=== PATIENT | female | born 1955 | race Caucasian/White ===

== ENCOUNTER 2017-06-01 08:59 | Outpatient (CLI) | payer OTHER ==
--- NOTE | 2017-06-09 15:12 | MMO ---
BILATERAL DIGITAL SCREENING MAMMOGRAMS WITH CAD COMPARISON: 05/31/2013. FINDINGS: There are scattered fibroglandular densities. A biopsy clip is seen in the right breast. There ar e new tiny grouped calcifications in the upper outer breast on both sides. IMPRESSION: BI-RADS Category 0: Incomplete assessment. Recommend direct MLO and spot magnification views of th e bilateral calcifications. POS: [facility]
== END 2017-06-01 09:00 | disposition home or self-care (01) ==
LOC: MAMMO 08:59
PROVIDERS: ATTEND Internal Medicine
DX: Z12.31 Encounter for screening mammogram for malignant neoplasm of breast (principal)
CPT/HCPCS: 77067; G0202

== ENCOUNTER 2017-06-11 09:47 | Outpatient (CLI) | payer OTHER ==
--- NOTE | 2017-06-11 12:43 | MMO ---
BILATERAL DIAGNOSTIC BREAST MAMMOGRAM: Date: 06/11/17 HISTORY: Abnormal calcification noted on screening mammography, bilaterally. COMPARISON: 05/31/13, 06/01/17. TECHNIQUE: Spot views of the left and right breast are performed on the CC and MLO projection. Additionally, 90 degree views are performed. FINDINGS: Redemonstration of biopsy clip. Calcifications in the upper outer left breast have a benign appearan ce. IMPRESSION: BIRADS 2: Benign Finding(s) RECOMMENDATION: Annual mammogram. POS: [facility]
== END 2017-06-11 09:48 | disposition home or self-care (01) ==
LOC: MAMMO 09:47
PROVIDERS: ATTEND Internal Medicine
DX: R92.1 Mammographic calcification found on diagnostic imaging of breast (principal)
CPT/HCPCS: 77066; G0204

== ENCOUNTER 2017-09-03 09:14 | Outpatient (CLI) | payer OTHER ==
--- NOTE | 2017-09-03 11:52 | MRI ---
MRI OF THE ABDOMEN WITHOUT AND WITH CONTRAST: COMPARISON: Abdominal ultrasound 04/16/17. HISTORY: Excessive weight loss and elevated LFTs. Gallstones. TECHNIQUE: Multiplanar, multisequence MR images were obtained of the abdomen without and with IV contrast. FINDINGS: There is a 6-7 mm filling defect in the gallbladder consistent with a gallstone. No biliary dilatati on is seen. Adjacent to the gallbladder, there is a 3 cm lesion in the right lobe of the liver demonstrating lowe r T1 signal than the adjacent liver parenchyma. After the administration of contrast, this lesion de monstrates gradual enhancement with incomplete fill-in. This could represent a hemangioma. No other liver lesions are seen. The kidneys, adrenal glands, spleen, and pancreas are unremarkable. No abdominal adenopathy is seen. No marrow signal abnormality is present. IMPRESSION: 1. There is a mass-like lesion in the right lobe of the liver. This could represent a hemangioma. However, this would be an atypical hemangioma as it appears to fill more centrally first rather than peripherally. A followup CT or MRI in 3-6 months is recommended to ensure stability. 2. Cholelithiasis. POS: [facility]
== END 2017-09-03 09:15 | disposition home or self-care (01) ==
LOC: MRI 09:14
PROVIDERS: ATTEND Internal Medicine Gastroenterology
DX: K80.20 Calculus of gallbladder without cholecystitis without obstruction (principal); R74.8 Abnormal levels of other serum enzymes; R63.4 Abnormal weight loss
CPT/HCPCS: 74183; 82565

== ENCOUNTER 2018-07-19 13:45 | Outpatient (CLI) | payer OTHER | END 2018-07-19 13:46 | disposition home or self-care (01) | LOC: BICMAMMO 13:45 | PROVIDERS: ATTEND Internal Medicine | DX: Z12.31 Encounter for screening mammogram for malignant neoplasm of breast (principal); Z85.89 Personal history of malignant neoplasm of other organs and systems | CPT/HCPCS: 77063; 77067 ==

== ENCOUNTER 2018-07-25 14:01 | Outpatient (CLI) | payer OTHER | END 2018-07-25 14:02 | disposition home or self-care (01) | LOC: BICMAMMO 14:01 | PROVIDERS: ATTEND Internal Medicine | DX: N63.21 Unspecified lump in the left breast, upper outer quadrant (principal); Z85.89 Personal history of malignant neoplasm of other organs and systems | CPT/HCPCS: G0279 ==

== ENCOUNTER 2018-07-29 10:45 | Outpatient (CLI) | payer OTHER ==
--- NOTE | 2018-07-29 13:03 | ULT ---
LIMITED LEFT BREAST ULTRASOUND: Date: 07/29/18 PROVIDED CLINICAL HISTORY: Abnormal mammogram. FINDINGS: Limited sonographic interrogation was performed of the left breast from the 12-3:00 positions. There are scattered small simple cysts seen. There is no concerning mass to correspond to the area of archi tectural distortion on mammography. This area of mammographic distortion appears similar to the 2017 examination. IMPRESSION: BIRADS Category 3 - Probably benign findings. A 6 month follow-up left diagnostic mammogram is recomm ended. The facility will notify patient of need for additional imaging services. POS: OFF
== END 2018-07-29 10:46 | disposition home or self-care (01) ==
LOC: BICULT 10:45
PROVIDERS: ATTEND Internal Medicine
DX: R92.8 Other abnormal and inconclusive findings on diagnostic imaging of breast (principal)

== ENCOUNTER 2019-01-30 13:41 | Outpatient (CLI) | payer MEDICARE, OTHER ==
--- NOTE | 2019-01-30 14:47 | MMO ---
Left Breast MAMMO Unilat Diag [facility] LT+SHAHEEN. CLINICAL HISTORY: Patient is 64 years old and is seen for follow-up at short-interval from prior study. The patient has no family history of breast cancer. The patient has a history of other cancer in 2018. VIEWS: The views performed were: left craniocaudal with tomosynthesis; left mediolateral oblique with tomosynthesis; and left mediolateral. FILMS COMPARED: The present examination has been compared to prior imaging studies performed at [facility] on 07/19/2018, 07/25/2018 and 01/30/2019. MAMMOGRAM FINDINGS: The breast is heterogeneously dense, which could obscure a lesion on mammography. There is an area of architectural distortion seen in the outer region of the left breast. IMPRESSION: AREA OF ARCHITECTURAL DISTORTION IN THE LEFT BREAST IS PROBABLY BENIGN. FOLLOW-UP IN 6 MONTHS IS RECOMMENDED. THE RESULTS OF THIS EXAM WERE SENT TO THE PATIENT. ACR BI-RADS Category 3 - Probably benign finding - short interval follow-up suggested. [facility] will notify the patient of the need for additional imaging services. MAMMOGRAPHY NOTE: 1. A negative mammogram report should not delay a biopsy if a dominant of clinically suspicious mass is present. 2. Approximately 10% to 15% of breast cancers are not detected by mammography. 3. Adenosis and dense breasts may obscure an underlying neoplasm.
--- NOTE | 2019-01-30 14:59 | ULT ---
LEFT BREAST ULTRASOUND: 01/30/19 HISTORY: 64-year-old female with architectural distortion in the outer aspect of the left breast on mammograph y. Patient has a history of a horse bite to the left breast multiple years in the past that caused he r breast to be black and blue as well as larger than the opposite breast. COMPARISON: 07/29/18 and mammogram 01/30/19. TECHNIQUE: Multiplanar chau scale and color Doppler images were obtained in a left breast ultrasound. FINDINGS: In the outer aspect of the left breast, normal appearing breast parenchyma is seen. No suspicious mas s or shadowing is seen. A normal appearing lymph node is seen in the left axilla. IMPRESSION: BIRADS 3: Probably Benign Finding Initial Short-Interval Follow-Up Suggested Initial short-term follow up (usually 6-month) mammogram and ultrasound left breast is recommended. If an MRI happens to be performed in the interval, the follow-up may be unnecessary if the MRI does n ot show any findings. The architectural distortion in the left breast appears to be slightly increasing but no definite mas s is seen. This could be secondary to the patient's recent weight loss from her known cholangiocarcin jonny and/or the history of bite/trauma to the left breast. However, given the appearance of slight inc reasing architectural distortion, an MRI of the left breast may be helpful to exclude an underlying m alignant process. POS: [facility]
== END 2019-01-30 13:42 | disposition home or self-care (01) ==
LOC: BICMAMMO 13:41
PROVIDERS: ATTEND Internal Medicine
DX: R92.8 Other abnormal and inconclusive findings on diagnostic imaging of breast (principal); Z85.89 Personal history of malignant neoplasm of other organs and systems; N64.89 Other specified disorders of breast
CPT/HCPCS: 76642; 77065; G0279

== ENCOUNTER 2019-02-10 10:19 | Outpatient (CLI) | payer MEDICARE, OTHER ==
--- NOTE | 2019-02-10 12:18 | MRI ---
MRI OF THE BILATERAL BREASTS WITHOUT AND WITH CONTRAST: HISTORY: Architectural distortion in the outer aspect of the left breast on mammography. COMPARISON: 01/30/2019, 07/25/2018, 07/19/2018. TECHNIQUE: Multiplanar, multisequence MR images were obtained in the bilateral breasts without and with IV contr ast. FINDINGS: Heterogeneously dense breast parenchyma is seen. No significant background parenchymal enhancement i s present. There is an area of architectural distortion in the upper outer aspect of the left breast . In the center of this area of architectural distortion, there is a 5 mm region of enhancement. Th is enhancement is not uniform but has almost 3 separate areas of enhancement. The enhancement curve in this region is difficult to assess given the small areas of enhancement, but it appears that the e nhancement is a plateau. No other abnormal area of enhancement is seen in either breast. There is a well-circumscribed benign -appearing cyst in the right breast measuring 6 mm in size. No axillary adenopathy is seen. No internal mammary lymph nodes are identified. No marrow signal abnormality is seen. The visualized anterior liver is unremarkable. IMPRESSION: 1, There is increasing architectural distortion upper outer aspect of the left breast. A biopsy of this region is recommended as this area does demonstrate enhancement. Either a stereotactic biopsy o r an MRI-guided biopsy could be performed. An attempt could be made at a stereotactic biopsy, but a stereotactic biopsy may be difficult given the significant increased density of the breast. An MRI b iopsy could be performed as well without the worry about the increased density. 2. BIRADS category 4 - suspicious abnormality. A biopsy is recommended. This recommendation was communicated to the nurse navigator, Dali Villegas, at 12:04 p.m. on 02/10/2019. CODE CR POS: [facility]
== END 2019-02-10 10:20 | disposition home or self-care (01) ==
LOC: BICMRI 10:19
PROVIDERS: ATTEND Internal Medicine
DX: R92.8 Other abnormal and inconclusive findings on diagnostic imaging of breast (principal); L90.5 Scar conditions and fibrosis of skin
CPT/HCPCS: 82565; C8908; A9577